=== PATIENT | male | born 1990 | race Caucasian/White ===

== ENCOUNTER 2016-09-02 10:04 | Emergency (ER) | payer OTHER ==
[~2016-09-02 10:04] MED LIST: HYDR-4003 PO; MELO-259 PO; NAPR500T PO; NPR500T PO; ONDA4TAB9 PO; TAMS0.4C98 PO
[2016-09-02 10:10] VITALS: BP 134/88; PULSE 74; RESP 16; O2SAT 98
--- NOTE | 2016-09-02 10:23 | ED.REPORT ---
HPI-Trauma Minor / Fall Date of Service September 02, 2016 ED Provider: The patient is a 25 year old otherwise healthy male, who was sent to the emergency department from urgent care for a head injury that occurred at 0730 this morning. The patient was at work when a metal bar from a work truck slipped and hit the patient on the back of his head. He does not believe he lost consciousness. At this time he complains of head pain, neck pain, and jaw pain. The patient also reports feeling tired and dizzy, and he has had a hard time concentrating. His girlfriend feels that the patient is lethargic and mildly confused. He denies vomiting. Nursing Notes Stated Complaint: HEAD INJURY SENT FROM URGENT CARE Chief Complaint: Head, Face, Neck Trauma Nursing Notes Reviewed: Yes Allergies: Coded Allergies: chlorpheniramine (Unverified Adverse Reaction, Severe, RESTLESSNESS/ ANXIETY, 12/18/14) BROMPHENIRAMINE MALEATE DESTROMETHORPHAN HBR PSEUDOEPHEDRINE HCL PHENYLPROPANOLAMINE HCL dextromethorphan (Unverified Adverse Reaction, Severe, RESTLESSNESS/ ANXIETY, 12/18/14) BROMPHENIRAMINE MALEATE DESTROMETHORPHAN HBR PSEUDOEPHEDRINE HCL PHENYLPROPANOLAMINE HCL Adhesives (Verified Adverse Reaction, Intermediate, rash, itching, 01/07/15) latex (Verified Adverse Reaction, Intermediate, burning of the skin, ) Uncoded Allergies: SOME ANTIBIOTICS (Allergy, Unknown, red man syndrome, 12/01/14) Scheduled Meloxicam (Meloxicam) 7.5 Mg Tablet 7.5 MG PO DAILY Ondansetron (Ondansetron) 8 Mg Tablet 8 MG PO TID for nausea Tamsulosin (Flomax) 0.4 Mg Capsule 0.4 MG PO DAILY Scheduled PRN Hydrocodone-Acetaminophen 5-325 mg (Hydrocodone-Acetaminophen 5-325 mg) 1 Each Tablet 1 TABLET PO 4-6H PRN PRN For Pain Naproxen (Naproxen) 500 Mg Tab 500 MG PO BID PRN PRN For Pain Naproxen (Naprosyn) 500 Mg Tablet 500 MG PO BID PRN PRN For Pain Ondansetron ODT (Zofran ODT) 4 Mg Tablet 4 MG PO Q4H PRN PRN For Nausea oxyCODONE-Acetaminophen 5-325 mg (oxyCODONE-Acetaminophen 5-325 mg) 1 Each Tablet 1-2 TAB PO Q6H PRN PRN For Pain for acute severe headache General Time Seen by MD: 10:25 Chief Complaint Head injury Hx Obtained From: Patient, Spouse Arrived By: Walk-in Onset Occurred: 1 - 4 hours ago Symptom Duration: Since onset Caused by: Blunt trauma Context: Occurred at: Workplace Location: Head Neck Quality: Painful Severity: Current: Moderate Severity: Maximum: Severe Recent Healthcare: No recent hospitalization, Recent doctor visit Similar Sx Previous: No Past Medical History Past Medical History Hx of septic ankle joint Past Surgical History 3 previous Lt. ankle surgeries Family History Noncontributory Smoking History Light Tobacco Smoker Social History Uses a vaporizer. Alcohol Use: 1-3 per day Drug Use: Denies drug use Other Social History: Good social support, Local resident Ambulatory Status Independent Review of Systems Review of Systems Note: +jaw pain, feels dazed, difficulty concentrating Constitutional: Reports: Fatigue, Lethargy Musculoskeletal: Reports: Neck pain Neurologic: Reports: Confusion, Dizziness, Headache, Denies: Change LOC, Syncope Complete sys rev & neg: except as marked. GI: Denies: Vomiting Physical Exam Initial Vital Signs Vital Signs (First) Date Time Temp Pulse Resp B/P Pulse Ox O2 Delivery O2 Flow Rate FiO2 17 10:10 36.4 74 16 134/88 98 Initial VS: Reviewed Respiratory: Breath sounds normal, Clear to auscultation, No respiratory distress Cardiovascular: Regular rate & rhythm, Heart sounds normal, Intact distal pulses Abdomen / GI: Soft, Non-tender, No guarding, No rebound, No distention Lymphatic: No lymphadenopathy Extremities: Vascular intact, Neuro intact, No swelling, No tenderness Skin: Warm, Dry, No cyanosis Psychiatric: Mood/affect normal, Behavior normal, Normal thought content General/Constitutional: Cooperative Neck: Full range of motion, No swelling, Non-tender, No midline vertebral tend Trauma - Neck Specific: Positive: Immobilized - C Collar Point tenderness at C2. Muscle spasms from the right occipital insertion down along the cervical paraspinous muscles on the right. Head / Eyes: Normocephalic, PERRL, EOMI There is a a small amount of swelling to the occipital parietal border with tenderness to palpation. ENT: Atraumatic, Airway patent, Mucous membranes moist, Tympanic membs NL, Ext aud canal NL, Mastoid area NL Trauma - ENT Specific: Negative: Hemotympanum L, Hemotympanum R Interpretation & Diagnostics CT Head Interpretation IMPRESSION: 1. Normal CT brain scan. Dictated by: Mert Johnston M.D. on 09/02/2016 at 10:48 Study: Head CT no contrast Interpretation / Wet Read by: Interpret - Radiologist CT C-Spine Interpretation IMPRESSION: 1. Loss of lordosis. Negative for fracture. Dictated by: Mert Johnston M.D. on 09/02/2016 at 10:50 Study type: CT no contrast Interpretation / Wet Read by: Interpret - Radiologist Re-Eval/Medical Decision Source of Hx: Old records, Friend Re-Evaluation/Progress : Time of Eval: 11:34 Re-Evaluation/Progress Note: Rechecked the patient. Discussed results, diagnosis, and plan for discharge. All questions were addressed. Counseled Regarding: Diagnosis, Need for follow-up, When/why to return to ED Discharge & Departure Impression: Primary Impression: Concussion Encounter type: initial encounter Loss of consciousness presence/duration: without LOC Qualified Code: S06.0X0A - Concussion without loss of consciousness, initial encounter Ruled Out: Cervical spine fracture, Intracranial hemorrhage Disposition: Home Discharge Condition All VS Reviewed: Yes Condition: Stable Patient Instructions: Concussion (ED) Additional Instructions: Thank you for entrusting us with your care today. Your head and neck CT today are reassuring. There is no evidence of any fractures or an intracranial hemorrhage. You can expect to have headaches for the next few days with some nausea. Use the Zofran as needed for your nausea. Followup with your regular doctor next week if your symptoms are not improving. Return to the emergency department for increased pain, visual changes, numbness , weakness, or any other new or worsening symptoms. Referrals: Cullen Porras MD (PCP) Scribe Attestation Portions of this note were transcribed by Jeannie Sales. I, Dr. Madrid personally performed the history, physical exam and medical decision-making; I reviewed and confirmed the accuracy of the information in the transcribed note. Signed by: Arcenio Yang,09/02/2016 at 1145. copies to: Cullen Porras MD, Shawna L MD September 02, 2016 10:23 Jeannie Sales September 02, 2016 10:33
--- NOTE | 2016-09-02 10:51 | DRSVH ---
PROCEDURE: CT BRAIN WITHOUT CONTRAST ([id number]) INDICATIONS: head injury TECHNIQUE: Noncontrast 4.5 mm thick angled axial sections acquired from the foramen magnum to the vertex, with c oronal reformats. COMPARISON: CT brain 06/11/2009 FINDINGS: Image quality: Excellent. CSF spaces: Basal cisterns are patent. No extra-axial fluid collections. Ventricles are normal in size and shape. Brain: No midline shift. No intracranial masses or hemorrhage. Ellis-white matter interface is norm al. Skull and face: Calvarium and visualized facial bones are intact, without suspicious lesions. Sinuses: Visualized sinuses and mastoids are clear. IMPRESSION: 1. Normal CT brain scan. Dictated by: Mert Johnston M.D. on 09/02/2016 at 10:48 Approved by: Mert Johnston M.D. on 09/02/2016 at 10:50
--- NOTE | 2016-09-02 10:54 | DRSVH ---
PROCEDURE: CT CERVICAL SPINE WITHOUT CONTRAST ([id number]) INDICATIONS: trauma TECHNIQUE: Noncontrast 3 mm thick sections acquired from the skull base to the T4 level. Sagittal and coronal r eformats were then constructed. For radiation dose reduction, the following was used: automated exp osure control, adjustment of mA and/or kV according to patient size. COMPARISON: MRI cervical spine 07/27/2007 FINDINGS: Image quality: Excellent. Bones: No fractures or dislocations. Mild reversal of cervical lordosis may be positional or related to muscle spasm. Visualized superior ribs are intact. Soft tissues: Prevertebral soft tissues are normal in thickness. No paravertebral hematomas. No ap ical pneumothoraces. IMPRESSION: 1. Loss of lordosis. Negative for fracture. Dictated by: Mert Johnston M.D. on 09/02/2016 at 10:50 Approved by: Mert Johnston M.D. on 09/02/2016 at 10:53
[2016-09-02] MEDS ORDERED: ONDA-54 PO (11:31)
[2016-09-02] MEDS ORDERED: OXYC1TAB24 PO (11:31)
[2016-09-02 12:03] VITALS: BP 130/84; PULSE 74; RESP 16; O2SAT 98
== END 2016-09-02 12:04 | disposition home or self-care (01) ==
LOC: SED 10:04
DX: S06.0X0A Concussion without loss of consciousness, initial encounter (principal); F17.200 Nicotine dependence, unspecified, uncomplicated; W22.8XXA Striking against or struck by other objects, initial encounter; Y93.9 Activity, unspecified; Y92.69 Other specified industrial and construction area as the place of occurrence of the external cause; Y99.0 Civilian activity done for income or pay; Z88.8 Allergy status to other drugs, medicaments and biological substances; Z91.040 Latex allergy status